=== PATIENT | female | born 2000 | race American Indian/Alaskan Native ===

== ENCOUNTER 2020-11-29 15:43 | Emergency (ER) | payer SELFPAY ==
[2020-11-29 17:00] VITALS: BP 112/62
--- NOTE | 2020-11-29 17:14 | Emergency Department Report ---
ED General Adult HPI - General Chief complaint: Skin/Abscess/Foreign Body Stated complaint: NIPPLE ABCESS Time Seen by Provider: 11/29/20 17:01 Source: patient Mode of arrival: Ambulatory Limitations: No Limitations - History of Present Illness Initial comments: Patient is a 20-year-old female presents emergency room with complaints of a mass present to the left breast that began in June 2020. Patient reports that she was post to have a mammogram and ultrasound performed but reports that she did not follow-up. She states that it is painful. He states occasionally she sees drainage from the nipple and nipple bleeding. She denies any fever, nausea, vomiting, diarrhea. No past medical history. No allergies to medications. She states her only family history of breast cancer is in her great aunt. - Related Data Allergies Allergy/AdvReac Type Severity Reaction Status Date / Time No Known Allergies Allergy Unverified 11/29/20 16:58 ED Review of Systems ROS: Stated complaint: NIPPLE ABCESS Other details as noted in HPI Comment: All other systems reviewed and negative ED Past Medical Hx - Past Medical History Previous Medical History?: No - Surgical History Past Surgical History?: No ED Physical Exam - General Limitations: No Limitations General appearance: alert, in no apparent distress - Head Head exam: Present: atraumatic, normocephalic - Eye Eye exam: Present: normal appearance - ENT ENT exam: Present: mucous membranes moist - Respiratory Respiratory exam: Absent: respiratory distress, accessory muscle use - Neurological Exam Neurological exam: Present: alert, oriented X3 - Psychiatric Psychiatric exam: Present: normal affect, normal mood - Skin Skin exam: Present: warm, dry, other (manager contracting: MACHO pemberton, there is a 5 cm firm nodule present just inferior to the nipple, no erythema, no increased warmth, no nipple drainage or bleeding, no skin changes, no peau d'orange) ED Course Vital Signs 11/29/20 16:57 Temperature 99.3 F Pulse Rate 89 Respiratory 16 Rate Blood Pressure 112/62 O2 Sat by Pulse 100 Oximetry ED Medical Decision Making - Medical Decision Making Patient is a 20-year-old female presents emergency room with complaints of a mass present to the left breast that began in June 2020. Patient reports that she was post to have a mammogram and ultrasound performed but reports that she did not follow-up. She states that it is painful. He states occasionally she sees drainage from the nipple and nipple bleeding. She denies any fever, nausea, vomiting, diarrhea. No past medical history. No allergies to medications. She states her only family history of breast cancer is in her great aunt. Vitals are normal. On exam:manager contracting: MACHO pemberton, there is a 5 cm firm nodule present just inferior to the nipple, no erythema, no increased warmth, no nipple drainage or bleeding, no skin changes, no peau d'orange. Patient has no signs of mastitis or breast abscess at this time. Exam is concerning for breast mass. stressed the importance of outpatient follow-up with patient and patient given the appropriate resources. Advised patient May take Tylenol or ibuprofen as needed for pain. Follow-up with [facility]. Follow-up with your primary care doctor. It is very important that you follow-up. Return to emergency room for any new or worsening symptoms. Critical care attestation.: If time is entered above; I have spent that time in minutes in the direct care of this critically ill patient, excluding procedure time. ED Disposition Clinical Impression: Breast mass Disposition: 01 HOME / SELF CARE / HOMELESS Is pt being admited?: No Does the pt Need Aspirin: No Condition: Stable Additional Instructions: May take Tylenol or ibuprofen as needed for pain. Follow-up with [facility]. Follow- up with your primary care doctor. It is very important that you follow-up. Return to emergency room for any new or worsening symptoms. Referrals: PRICE GUTIERREZ MD [Staff Physician] - 3-5 Days [facility] [Provider Group] - 3-5 Days Time of Disposition: 17:14 Print Language: BELARUSIAN
== END 2020-11-29 17:16 | disposition home or self-care (01) ==
LOC: ED 15:43
DX: N63.20 Unspecified lump in the left breast, unspecified quadrant (principal)
CPT/HCPCS: 99281